=== PATIENT | female | born 1985 | race American Indian/Alaskan Native ===

== ENCOUNTER 2017-01-13 01:33 | Emergency (ER) | payer MEDICAID ==
[2017-01-13 01:45] VITALS: BP 143/99
[2017-01-13] MEDS ORDERED: Bupivacaine 0.5%/EPINEPHrine 1:200,000 1.8 ML Cartridge INJECT ONE (01:57)
--- NOTE | 2017-01-13 02:03 | EDM.PDOC ---
ED HPI GENERAL MEDICAL PROBLEM - General Chief Complaint: ENT Problem Stated Complaint: TOOTH PAIN Time Seen by Provider: 01/13/17 01:45 Source of Information: Reports: Patient History Limitations: Reports: No Limitations - History of Present Illness INITIAL COMMENTS - FREE TEXT/NARRATIVE: 31-year-old with left mandibular dental pain for the past several days, much worse over the past 6 hours. A small amount of swelling is occurring at the base of the second molar of the left mandible. No fevers or chills. Onset: Gradual Duration: Day(s): Severity: Moderate Associated Symptoms: Reports: No Other Symptoms Lower Tooth/Teeth Pain Score (Numeric/FACES): 9 - Related Data Allergies Allergy/AdvReac Type Severity Reaction Status Date / Time ondansetron HCl [From Zofran] Allergy Severe Tachycardia Verified 01/13/17 01:45 droperidol Allergy Tachycardia Verified 01/13/17 01:45 Home Meds: Home Meds Acetaminophen [Tylenol] 650 mg PO Q4H PRN 05/14/13 [History] oxyCODONE 1 - 2 tab PO Q4HR 06/15/14 [History] Citalopram Hydrobromide [Citalopram HBr] 20 mg PO DAILY 10/09/15 [History] Past Medical History HEENT History: Reports: Impaired Vision Other HEENT History: 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 Social & Family History - Tobacco Use Smoking Status *Q: Light Tobacco Smoker Years of Tobacco use: 15 Packs/Tins Daily: 0.5 Used Tobacco, but Quit: No Second Hand Smoke Exposure: No - Alcohol Use Days Per Week of Alcohol Use: 0 - Recreational Drug Use Recreational Drug Use: No ED ROS ENT - Review of Systems Review Of Systems: See Below Constitutional: Denies: Fever, Chills HEENT: Reports: Dental Pain, Other (No facial swelling) Respiratory: Denies: Shortness of Breath GI/Abdominal: Denies: Nausea, Vomiting Skin: Reports: No Symptoms ED EXAM, ENT - Physical Exam Exam: See Below Exam Limited By: No Limitations General Appearance: Alert, Mild Distress (Looks uncomfortable, tearful) Mouth/Throat: Other (Several teeth are missing from past extractions. There is a small amount of erythema and swelling at the base of the second molar on the left mandible. The tooth is tender to percussion.) Course - Vital Signs Last Recorded V/S: Last Vital Signs Temp 97.8 F 01/13/17 01:43 Pulse 105 H 01/13/17 01:43 Resp 18 01/13/17 01:43 BP 143/99 H 01/13/17 01:43 Pulse Ox 95 01/13/17 01:43 - Orders/Labs/Meds Meds: Medications Discontinued Medications Generic Name Dose Route Start Last Admin Trade Name Fernando PRN Reason Stop Dose Admin Bupivacaine HCl/Epinephrine Bitart 1.8 ml 01/13/17 01:57 01/13/17 02:03 Marcaine 0.5%/Epinephrine 1:200,000 INJECT 01/13/17 01:58 1.8 ml ONETIME ONE Administration - Re-Assessments/Exams Free Text/Narrative Re-Assessment/Exam: 01/13/17 02:08 Using Sensorcaine, and inferior alveolar nerve block was done and the patient was placed on penicillin 4 times a day. A dental referral for tomorrow morning will be written. She can continue on her pain medications. Departure - Departure Time of Disposition: 02:30 Disposition: Home, Self-Care 01 Condition: Good Clinical Impression: Dental abscess - Discharge Information Instructions: Dental Abscess Referrals: Davon Nino MD [Primary Care Provider] - Forms: ED Department Discharge Care Plan Goals: Take antibiotics 4 times a day and attempt to be worked in at the dental clinic on Thursday. Continue your regular pain medications and ibuprofen together.
== END 2017-01-13 02:30 | disposition home or self-care (01) ==
LOC: JP.ED 01:33
DX: K04.7 Periapical abscess without sinus (principal); F41.9 Anxiety disorder, unspecified; F17.210 Nicotine dependence, cigarettes, uncomplicated; Z79.899 Other long term (current) drug therapy; Z88.8 Allergy status to other drugs, medicaments and biological substances
CPT/HCPCS: 64400; 99283-25

== ENCOUNTER 2017-04-02 13:47 | Emergency (ER) | payer MEDICAID ==
[2017-04-02 14:03] VITALS: BP 162/109
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
== END 2017-04-02 16:27 | disposition home or self-care (01) ==
LOC: JP.ED 13:47
DX: S00.83XA Contusion of other part of head, initial encounter (principal); S10.93XA Contusion of unspecified part of neck, initial encounter; S20.219A Contusion of unspecified front wall of thorax, initial encounter; S40.022A Contusion of left upper arm, initial encounter; S40.021A Contusion of right upper arm, initial encounter; S00.93XA Contusion of unspecified part of head, initial encounter; T76.21XA Adult sexual abuse, suspected, initial encounter; J45.909 Unspecified asthma, uncomplicated; Z88.8 Allergy status to other drugs, medicaments and biological substances; Y04.0XXA Assault by unarmed brawl or fight, initial encounter
CPT/HCPCS: 81025; 99285

== ENCOUNTER 2017-10-28 15:17 | Emergency (ER) | payer MEDICAID, OTHER ==
[2017-10-28] MEDS: Sodium Chloride 0.9% 1,000 ML IV SCH (17:41)
--- NOTE | 2017-10-28 18:26 | EDM.PDOC ---
<Danielle Hatfield - Last Filed: 10/28/17 18:32> ED HPI GENERAL MEDICAL PROBLEM - General Chief Complaint: Back Pain or Injury Stated Complaint: VOMITING,BACK PAIN Time Seen by Provider: 10/28/17 18:21 Source of Information: Reports: Patient History Limitations: Reports: No Limitations - History of Present Illness INITIAL COMMENTS - FREE TEXT/NARRATIVE: Pt arrived complaining of back pain. She was not able to give a good history. She was very obtunded. She is clearly jaundiced. Onset: Gradual, Other (Pt just kept saying that she feels so sick. 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 Cardiovascular History: Reports: Other (See Below) Other Cardiovascular History: long qt syndrome Respiratory History: Reports: Asthma 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: Neurological History: Reports: Migraines Other Neuro History: NEUROPATHY Psychiatric History: Reports: Anxiety Hematologic History: Reports: None - Past Surgical History HEENT Surgical History: Reports: Other (See Below) Social & Family History - Tobacco Use Smoking Status *Q: Current Every Day Smoker Years of Tobacco use: 20 Packs/Tins Daily: 0.5 - Caffeine Use Caffeine Use: Reports: Coffee, Soda - Recreational Drug Use Recreational Drug Use: No ED ROS GENERAL - Review of Systems Review Of Systems: See Below Constitutional: Reports: No Symptoms, Decreased Appetite HEENT: Reports: No Symptoms Respiratory: Reports: No Symptoms Cardiovascular: Reports: No Symptoms GI/Abdominal: Reports: Other (pt is talking about back pain mainly) : Reports: No Symptoms Neurological: Reports: No Symptoms Psychiatric: Reports: Anxiety, Other (pt is very obtunded and not able to give a good history. ) ED EXAM, UPPER BACK/NECK PAIN - Physical Exam Exam: See Below Text/Narrative:: Pt is clinically jaundiced. She keeps saying that she is so sick. Exam Limited By: No Limitations General Appearance: Alert, Anxious, Moderate Distress Ears Exam: Normal TMs Nose Exam: Normal Inspection Throat/Mouth Exam: Normal Inspection Head Exam: Atraumatic Neck Exam: Non-Tender Cardiovascular/Respiratory: Regular Rate, Rhythm GI/Abdominal: Tender, Other ( left cva tenderness. Pt has rt upper abdomanal tenderness. She is very difficult to get a history from. ) (Female) Exam: Deferred Rectal (Female) Exam: Deferred Back Exam: Normal Inspection Extremities: Normal Inspection Neurologic: Alert, Oriented x 3 Course - Vital Signs Last Recorded V/S: Last Vital Signs Temp 96.9 F 10/28/17 15:47 Pulse 87 10/28/17 19:48 Resp 16 10/28/17 19:48 BP 144/100 H 10/28/17 19:48 Pulse Ox 100 10/28/17 19:48 - Orders/Labs/Meds Orders: Active Orders 24 hr Category Date Time Status Abdomen Ltd [US] Stat Exams 10/28/17 16:53 Taken DRUG SCREEN, URINE [URCHEM] Stat Lab 10/28/17 16:40 Ordered ETOH [ETHANOL BLOOD MEDICAL] [CHEM] Stat Lab 10/28/17 18:20 Received HCG QUALITATIVE,URINE [URCHEM] Stat Lab 10/28/17 16:40 Ordered UA W/MICROSCOPIC [URIN] Urgent Lab 10/28/17 16:40 Ordered Sodium Chloride 0.9% [Normal Saline] 1,000 ml Med 10/28/17 17:00 Active IV ASDIRECTED Medication Orders Sodium Chloride (Normal Saline) 1,000 mls @ 999 mls/hr IV ASDIRECTED YO Last Admin: 10/28/17 17:41 Dose: 999 mls/hr Labs: Laboratory Tests 10/28/17 10/28/17 10/28/17 Range/Units 16:12 16:12 16:40 WBC 4.3 L (4.5-11.0) K/uL RBC 4.43 (3.30-5.50) M/uL Hgb 13.2 D (12.0-15.0) g/dL Hct 40.7 (36.0-48.0) % MCV 92 (80-98) fL MCH 30 (27-31) pg MCHC 32 (32-36) % Plt Count 222 (150-400) K/uL Neut % (Auto) 56 (36-66) % Lymph % (Auto) 29 (24-44) % [place] % (Auto) 11 H (2-6) % Eos % (Auto) 4 (2-4) % Baso % (Auto) 1 (0-1) % Sodium 136 L (140-148) mmol/L Potassium 3.6 (3.6-5.2) mmol/L Chloride 100 (100-108) mmol/L Carbon Dioxide 32 (21-32) mmol/L Anion Gap 7.6 (5.0-14.0) mmol/L BUN 5 L (7-18) mg/dL Creatinine 0.7 (0.6-1.0) mg/dL Est Cr Clr Drug Dosing 91.25 mL/min Estimated GFR (MDRD) > 60 (>60) Glucose 97 (74-106) mg/dL Calcium 8.8 (8.5-10.1) mg/dL Total Bilirubin 7.0 H (0.2-1.0) mg/dL AST 303 H (15-37) U/L ALT 444 H (12-78) U/L Alkaline Phosphatase 413 H (46-116) U/L Total Protein 6.8 (6.4-8.2) g/dL Albumin 3.0 L (3.4-5.0) g/dL Globulin 3.8 H (2.3-3.5) g/dL Albumin/Globulin Ratio 0.8 L (1.2-2.2) Urine Color Miner Urine Appearance Cloudy Urine pH 7.0 (4.5-8.0) Ur Specific [place] 1.015 (1.008-1.030) Urine Protein Negative (NEGATIVE) mg/dL Urine Glucose (UA) Normal (NEGATIVE) mg/dL Urine Ketones Negative (NEGATIVE) mg/dL Urine Occult Blood Large (NEGATIVE) Urine Nitrite Negative (NEGATIVE) Urine Bilirubin Moderate (NEGATIVE) Urine Urobilinogen 8 (NORMAL) mg/dL Ur Leukocyte Esterase Negative (NEGATIVE) Urine RBC 0-5 (0-5) Urine WBC 0-5 (0-5) Ur Epithelial Cells Few Amorphous Sediment Few Urine Bacteria Few Urine Mucus Rare Urine HCG, Qual Urine Opiates Screen (NEGATIVE) Ur Oxycodone Screen (NEGATIVE) Urine Methadone Screen (NEGATIVE) Ur Propoxyphene Screen (NEGATIVE) Ur Barbiturates Screen (NEGATIVE) Ur Tricyclics Screen (NEGATIVE) Ur Phencyclidine Scrn (NEGATIVE) Ur Amphetamine Screen (NEGATIVE) U Methamphetamines Scrn (NEGATIVE) Urine MDMA Screen (NEGATIVE) U Benzodiazepines Scrn (NEGATIVE) U Cocaine Metab Screen (NEGATIVE) U Marijuana (THC) Screen (NEGATIVE) 10/28/17 10/28/17 Range/Units 16:40 16:40 WBC (4.5-11.0) K/uL RBC (3.30-5.50) M/uL Hgb (12.0-15.0) g/dL Hct (36.0-48.0) % MCV (80-98) fL MCH (27-31) pg MCHC (32-36) % Plt Count (150-400) K/uL Neut % (Auto) (36-66) % Lymph % (Auto) (24-44) % [place] % (Auto) (2-6) % Eos % (Auto) (2-4) % Baso % (Auto) (0-1) % Sodium (140-148) mmol/L Potassium (3.6-5.2) mmol/L Chloride (100-108) mmol/L Carbon Dioxide (21-32) mmol/L Anion Gap (5.0-14.0) mmol/L BUN (7-18) mg/dL Creatinine (0.6-1.0) mg/dL Est Cr Clr Drug Dosing mL/min Estimated GFR (MDRD) (>60) Glucose (74-106) mg/dL Calcium (8.5-10.1) mg/dL Total Bilirubin (0.2-1.0) mg/dL AST (15-37) U/L ALT (12-78) U/L Alkaline Phosphatase (46-116) U/L Total Protein (6.4-8.2) g/dL Albumin (3.4-5.0) g/dL Globulin (2.3-3.5) g/dL Albumin/Globulin Ratio (1.2-2.2) Urine Color Urine Appearance Urine pH (4.5-8.0) Ur Specific [place] (1.008-1.030) Urine Protein (NEGATIVE) mg/dL Urine Glucose (UA) (NEGATIVE) mg/dL Urine Ketones (NEGATIVE) mg/dL Urine Occult Blood (NEGATIVE) Urine Nitrite (NEGATIVE) Urine Bilirubin (NEGATIVE) Urine Urobilinogen (NORMAL) mg/dL Ur Leukocyte Esterase (NEGATIVE) Urine RBC (0-5) Urine WBC (0-5) Ur Epithelial Cells Amorphous Sediment Urine Bacteria Urine Mucus Urine HCG, Qual Negative Urine Opiates Screen Negative (NEGATIVE) Ur Oxycodone Screen Negative (NEGATIVE) Urine Methadone Screen Negative (NEGATIVE) Ur Propoxyphene Screen Negative (NEGATIVE) Ur Barbiturates Screen Negative (NEGATIVE) Ur Tricyclics Screen Negative (NEGATIVE) Ur Phencyclidine Scrn Negative (NEGATIVE) Ur Amphetamine Screen Presumptive positive H (NEGATIVE) U Methamphetamines Scrn Presumptive positive H (NEGATIVE) Urine MDMA Screen Negative (NEGATIVE) U Benzodiazepines Scrn Negative (NEGATIVE) U Cocaine Metab Screen Presumptive positive H (NEGATIVE) U Marijuana (THC) Screen Presumptive positive H (NEGATIVE) Meds: Medications Generic Name Dose Route Start Last Admin Trade Name Freq PRN Reason Stop Dose Admin Sodium Chloride 1,000 mls @ 999 mls/hr 10/28/17 17:00 10/28/17 17:41 Normal Saline IV 999 mls/hr ASDIRECTED YO Administration - Re-Assessments/Exams Free Text/Narrative Re-Assessment/Exam: 10/28/17 18:26 all liver enzymes are up. Her bilirubin is 7. Departure - Departure Disposition: DC/Tfer to Other 70 Clinical Impression: Hyperbilirubinemia Cholelithiasis Qualifiers: Cholelithiasis location: gallbladder and bile duct Cholecystitis presence: without cholecystitis Biliary obstruction: with biliary obstruction Qualified Code(s): K80.71 - Calculus of gallbladder and bile duct without cholecystitis with obstruction - Discharge Information Referrals: PCP,None [Primary Care Provider] - Forms: ED Department Discharge Care Plan Goals: Patient is to be transferred by ambulance to [facility] in [place] for gastroenterology evaluation, ERCP and treatment of bile duct obstruction and cholelithiasis <Misael Green - Last Filed: 10/28/17 20:35> Course - Re-Assessments/Exams Free Text/Narrative Re-Assessment/Exam: 10/28/17 18:[address] Hatfield pending ultrasound report. Ultrasound is very positive with cholelithiasis, obstructive bile duct and positive Kovacs's. Discussed with surgery here in [place], recommendation was transferred to [place] for ERCP. Accepted at [facility]. Departure - Departure Time of Disposition: 20:20 Condition: Fair
[2017-10-28 19:48] VITALS: BP 144/100
== END 2017-10-28 20:49 | disposition other institution (70) ==
LOC: JP.ED 15:17
DX: K80.71 Calculus of gallbladder and bile duct without cholecystitis with obstruction (principal); E80.6 Other disorders of bilirubin metabolism; Z88.8 Allergy status to other drugs, medicaments and biological substances
CPT/HCPCS: 36415; 76705; 80053; 80305; 81001; 81025; 85025; 96360; 99285; G0480; J7030

== ENCOUNTER 2019-04-03 21:45 | Emergency (ER) | payer MEDICAID, OTHER ==
[2019-04-03 21:57] VITALS: BP 155/104; PULSE 116
== END 2019-04-03 22:20 | disposition left against medical advice (07) ==
LOC: JP.ED 21:45
DX: Z53.21 Procedure and treatment not carried out due to patient leaving prior to being seen by health care provider (principal)

== ENCOUNTER 2019-04-09 18:02 | Emergency (ER) | payer MEDICAID ==
[2019-04-09 18:18] VITALS: BP 143/99; PULSE 97
--- NOTE | 2019-04-09 18:37 | EDM.PDOC ---
ED HPI GENERAL MEDICAL PROBLEM - General Chief Complaint: Genitourinary Problem Stated Complaint: FLANK/KIDNEY PAIN Time Seen by Provider: 04/09/19 18:20 Source of Information: Reports: Patient History Limitations: Reports: Other (minimal old records) - History of Present Illness INITIAL COMMENTS - FREE TEXT/NARRATIVE: 34 yo NA female presents with low back pain that she says has been present since early January, but that is worse since she finished her antibiotics about a week ago. Was in shelter in the [place] area until about 10 days ago and was seen once in an ER there and has been tx'd by a [place] nurse in the interim as well. Alleges several courses of antibiotics with amoxicillin and Bactrim. Denies fever. Has some pain with movement. No vomiting. Has a PHx of long QT syndrome. Had an appt with her primary since getting out of shelter, but missed that appt. Onset: Gradual Onset Date: 02/02/19 Duration: Week(s):, Getting Worse Location: Reports: Back (low) Quality: Reports: Ache Severity: Moderate Improves with: Reports: Rest Worsens with: Reports: Movement Context: Reports: Other (see HPI) Associated Symptoms: Denies: Cough, Fever/Chills, Nausea/Vomiting, Rash, Shortness of Breath Treatments TUBE TRAILER FILLER: Reports: Other (see below) (none) Bilateral Flank Pain Score (Numeric/FACES): 8 - Related Data Allergies Allergy/AdvReac Type Severity Reaction Status Date / Time ondansetron HCl [From Zofran] Allergy Severe Tachycardia Verified 04/03/19 21:58 droperidol Allergy Tachycardia Verified 04/03/19 21:58 Home Meds: Home Meds NK [No Known Home Meds] 10/28/17 [History] Past Medical History HEENT History: Reports: Impaired Vision 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 Cardiovascular History: Reports: Other (See Below) Other Cardiovascular History: long qt syndrome Respiratory History: Reports: Asthma [employer] DEVELOPER History: 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: Neurological History: Reports: Migraines Other Neuro History: NEUROPATHY Psychiatric History: Reports: Anxiety Hematologic History: Reports: None - Past Surgical History Head Surgeries/Procedures: Reports: None HEENT Surgical History: Reports: Other (See Below) Cardiovascular Surgical History: Reports: None Respiratory Surgical History: Reports: None Neurological Surgical History: Reports: None Social & Family History - Tobacco Use Smoking Status *Q: Current Every Day Smoker Years of Tobacco use: 20 Packs/Tins Daily: 0.5 - Caffeine Use Caffeine Use: Reports: Coffee, Soda, Tea - Recreational Drug Use Recreational Drug Use: Yes Drug Use in Last 12 Months: Yes Recreational Drug Type: Reports: Marijuana/Hashish, Methamphetamine Recreational Drug Use Frequency: Patient Refuses To Answer Recreational Drug Last Use: t-2 ED ROS GENERAL - Review of Systems Review Of Systems: See Below Constitutional: Reports: No Symptoms HEENT: Reports: No Symptoms Respiratory: Reports: No Symptoms Cardiovascular: Reports: No Symptoms GI/Abdominal: Reports: No Symptoms : Reports: No Symptoms Musculoskeletal: Reports: Back Pain (low) Skin: Reports: No Symptoms Neurological: Reports: No Symptoms ED EXAM,LOWER BACK PAIN/INJURY - Physical Exam Exam: See Below Exam Limited By: No Limitations General Appearance: Alert, WD/WN, No Apparent Distress, Other (crying, appears more of an "act") Eye Exam: Bilateral Eye: Normal Inspection Ears: Normal External Exam, Normal Canal, Hearing Grossly Normal, Normal TMs Nose: Normal Inspection, No Blood Throat/Mouth: Normal Inspection, Normal Lips, Normal Oropharynx, Normal Voice, No Airway Compromise Head: Atraumatic, Normocephalic Neck: Normal Inspection Respiratory/Chest: No Respiratory Distress, Lungs Clear, Normal Breath Sounds, No Accessory Muscle Use Cardiovascular: Regular Rate, Rhythm, No Edema GI/Abdominal: Normal Bowel Sounds, Soft, Non-Tender, No Distention Back Exam: Normal Inspection, Paraspinal Tenderness, Vertebral Tenderness (?). No: CVA Tenderness (R), CVA Tenderness (L), Muscle Spasm Extremities: Normal Inspection, Normal Range of Motion, Non-Tender, No Pedal Edema Neurological: Alert, Normal Mood/Affect, CN II-XII Intact, No Motor/Sensory Deficits, Oriented x 3 Psychiatric: Tearful Course - Vital Signs Last Recorded V/S: Last Vital Signs Temp 36.4 C 04/09/19 18:27 Pulse 97 04/09/19 18:27 Resp 18 04/09/19 18:27 BP 143/99 H 04/09/19 18:27 Pulse Ox 100 04/09/19 18:27 - Orders/Labs/Meds Orders: Active Orders 24 hr Category Date Time Status Lumbar Spine 2 or 3V [CR] Stat Exams 04/09/19 18:56 Taken Labs: Laboratory Tests 04/09/19 04/09/19 04/09/19 Range/Units 18:31 18:37 19:04 WBC 5.4 (4.5-11.0) K/uL RBC 4.02 (3.30-5.50) M/uL Hgb 11.7 L D (12.0-15.0) g/dL Hct 37.9 (36.0-48.0) % MCV 94 (80-98) fL MCH 29 (27-31) pg MCHC 31 L (32-36) % Plt Count 238 (150-400) K/uL Sodium 141 (140-148) mmol/L Potassium 3.6 (3.6-5.2) mmol/L Chloride 102 (100-108) mmol/L Carbon Dioxide 29 (21-32) mmol/L Anion Gap 10.4 (5.0-14.0) mmol/L BUN 12 (7-18) mg/dL Creatinine 0.8 (0.6-1.0) mg/dL Est Cr Clr Drug Dosing 81.97 mL/min Estimated GFR (MDRD) > 60 (>60) Glucose 77 (74-106) mg/dL Calcium 8.7 (8.5-10.1) mg/dL C-Reactive Protein 1.16 H (0.0-0.3) mg/dL Urine Color [place] A (YELLOW) Urine Appearance Clear (CLEAR) Urine pH 5.5 (5.0-8.0) Ur Specific [place] >= 1.030 (1.008-1.030) Urine Protein Negative (NEGATIVE) mg/dL Urine Glucose (UA) Negative (NEGATIVE) mg/dL Urine Ketones Negative (NEGATIVE) mg/dL Urine Occult Blood Negative (NEGATIVE) Urine Nitrite Negative (NEGATIVE) Urine Bilirubin Small H (NEGATIVE) Urine Urobilinogen 2.0 H (0.2-1.0) EU/dL Ur Leukocyte Esterase Negative (NEGATIVE) Urine RBC 0-5 (0-5) Urine WBC 0-5 (0-5) Ur Epithelial Cells Many Amorphous Sediment Few Urine Bacteria Not seen Urine Mucus Rare Urine HCG, Qual 04/09/19 Range/Units 19:22 WBC (4.5-11.0) K/uL RBC (3.30-5.50) M/uL Hgb (12.0-15.0) g/dL Hct (36.0-48.0) % MCV (80-98) fL MCH (27-31) pg MCHC (32-36) % Plt Count (150-400) K/uL Sodium (140-148) mmol/L Potassium (3.6-5.2) mmol/L Chloride (100-108) mmol/L Carbon Dioxide (21-32) mmol/L Anion Gap (5.0-14.0) mmol/L BUN (7-18) mg/dL Creatinine (0.6-1.0) mg/dL Est Cr Clr Drug Dosing mL/min Estimated GFR (MDRD) (>60) Glucose (74-106) mg/dL Calcium (8.5-10.1) mg/dL C-Reactive Protein (0.0-0.3) mg/dL Urine Color (YELLOW) Urine Appearance (CLEAR) Urine pH (5.0-8.0) Ur Specific [place] (1.008-1.030) Urine Protein (NEGATIVE) mg/dL Urine Glucose (UA) (NEGATIVE) mg/dL Urine Ketones (NEGATIVE) mg/dL Urine Occult Blood (NEGATIVE) Urine Nitrite (NEGATIVE) Urine Bilirubin (NEGATIVE) Urine Urobilinogen (0.2-1.0) EU/dL Ur Leukocyte Esterase (NEGATIVE) Urine RBC (0-5) Urine WBC (0-5) Ur Epithelial Cells Amorphous Sediment Urine Bacteria Urine Mucus Urine HCG, Qual Negative Meds: Medications Discontinued Medications Generic Name Dose Route Start Last Admin Trade Name Freq PRN Reason Stop Dose Admin Acetaminophen 1,000 mg 04/09/19 18:57 04/09/19 19:08 Tylenol Extra Strength PO 04/09/19 18:58 1,000 mg ONETIME ONE Administration Ketorolac Tromethamine 60 mg 04/09/19 19:12 04/09/19 19:21 Toradol IM 04/09/19 19:13 60 mg ONETIME ONE Administration - Radiology Interpretation Free Text/Narrative:: Lumbar spine X-rays-neg Departure - Departure Time of Disposition: 20:00 Disposition: Home, Self-Care 01 Condition: Fair Clinical Impression: Back pain Qualifiers: Back pain location: low back pain Chronicity: unspecified Back pain laterality : midline Sciatica presence: without sciatica Qualified Code(s): M54.5 - Low back pain - Discharge Information *PRESCRIPTION DRUG MONITORING PROGRAM REVIEWED*: No *COPY OF PRESCRIPTION DRUG MONITORING REPORT IN PATIENT [place]: No Instructions: Musculoskeletal Pain Referrals: PCP,None [Primary Care Provider] - Forms: ED Department Discharge Additional Instructions: Take ibuprofen 600 mg every 6 hrs with food and/or acetaminophen as needed for pain relief. Avoid heavy lifting. F/U with Dr. Nino at your earliest opportunity. Sepsis Event Note - Evaluation Sepsis Screening Result: No Definite Risk - Focused Exam Vital Signs: Vital Signs Temp Pulse Resp BP Pulse Ox 04/09/19 18:27 36.4 C 97 18 143/99 H 100 04/09/19 18:17 36.4 C 97 18 143/99 H 100 Date Exam was Performed: 04/09/19 Time Exam was Performed: 19:56 - My Orders Last 24 Hours: My Active Orders 04/09/19 18:56 Lumbar Spine 2 or 3V [CR] Stat - Assessment/Plan Last 24 Hours: My Active Orders 04/09/19 18:56 Lumbar Spine 2 or 3V [CR] Stat
[2019-04-09] MEDS ORDERED: Acetaminophen 500 MG Tab PO ONE (18:57)
[2019-04-09] MEDS ORDERED: Ketorolac 60 MG/2 ML SDV IM ONE (19:12)
--- NOTE | 2019-04-09 20:14 | CRLCR ---
INDICATION: Lumbar pain TECHNIQUE: Lumbar spine 2 view. COMPARISON: Nine FINDINGS: Bones: Alignment is normal. No fractures or significant bone lesions. Joints: Disc spaces and facets are unremarkable. Soft tissues: Unremarkable. Miscellaneous: 2 stent like tubes identified in the right keerthi abdomen. Diffuse colonic fecal retention. IMPRESSION: Unremarkable lumbar spine. Diffuse colonic fecal retention. Dictated by Davon Wilder MD @ Apr 09 2019 8:12PM Signed by Dr. Davon Wilder @ Apr 09 2019 8:12PM
== END 2019-04-09 20:13 | disposition home or self-care (01) ==
LOC: JP.ED 18:02 → EEVIPCON 18:02 → JP.ED 20:13
DX: M54.5 Low back pain (principal); F17.210 Nicotine dependence, cigarettes, uncomplicated; Z88.8 Allergy status to other drugs, medicaments and biological substances
CPT/HCPCS: 36415; 72100; 80048; 81001; 81025; 85027; 86140; 96372; 99284; A9270; J1885